=== PATIENT | female | born 1945 | race Hispanic/Latino ===

== ENCOUNTER 2016-06-01 15:10 | Outpatient (CLI) | payer MEDICARE ==
--- NOTE | 2016-06-01 16:11 | Mammography Report ---
RIGHT DIGITAL SCREENING MAMMOGRAM : 06/01/16 15:10:00 CLINICAL: Routine screening. Breast cancer survivor status post left mastectomy. COMPARISON:05/03/15 FINDINGS: The breast is heterogeneously dense, which may obscure small masses.No mass, suspicious architectural distortion or suspicious calcifications. IMPRESSION: No mammographic evidence of malignancy. BI-RADS CATEGORY: 1 - - Negative RECOMMENDATION: Routine screening in one year. ACR BI-RADS MAMMOGRAPHIC CODES: 0 = Needs additional imaging evaluation; 1 = Negative; 2 = Benign; 3 = Probably benign; 4 = Suspicious; 5 = Malignant; 6 = Known biopsy-proven malignancy COMMENT: 1. Dense breast tissue, i.e., adenosis, fibrocystic changes, etc., may obscure an underlying neoplasm. 2. Approximately 10% of cancers are not detected with mammography. 3. A negative mammography report should not delay biopsy if a clinically suspicious mass is present. COMMENT: Patient follow-up letters are generated via our [employer] application.
== END 2016-06-01 15:11 | disposition home or self-care (01) ==
LOC: SPVWC 15:10
PROVIDERS: ATTEND Internal Medicine
DX: Z12.31 Encounter for screening mammogram for malignant neoplasm of breast (principal); Z90.12 Acquired absence of left breast and nipple
CPT/HCPCS: G0202-52

== ENCOUNTER 2017-01-22 08:40 | Outpatient (CLI) | payer MEDICARE ==
[2017-01-22 09:58] LABS: Blood Urea Nitrogen 15 mg/dL (7-17)
[2017-01-22] MEDS ORDERED: NACL ONE ×2 (11:19→11:53)
--- NOTE | 2017-01-22 14:43 | Cat Scan Report ---
CT CHEST, ABDOMEN AND PELVIS WITH CONTRAST INDICATION: Left breast cancer. Bilateral hip pain. COMPARISON: None similar. FINDINGS: Chest, abdomen and pelvis CT performed following oral contrast and intravenous administration of 100 cc of Omnipaque 300. CHEST: Unremarkable heart and great vessels, to the extent assessed. No effusions. Patent central airway. Numerous mediastinal lymph nodes measure up to 1.6 x 0.8 cm as on axial image 73, series 2. Largest vascular space confluent lymphadenopathy is approximately 1.8 x 0.9 cm, image 73. No definite significant hilar, subcarinal or axillary lymphadenopathy seen at this time. Left axillary surgical clips with left mastectomy and reconstruction. Normal thyroid. Slight biapical scarring. Slight bibasilar bronchiectasis possible. Nonspecific distal esophageal wall prominence/thickening, not excluded for gastroesophageal reflux and/or hiatal hernia, amongst others. ABDOMEN: Cholecystectomy clips. Liver, spleen, pancreas, adrenals, aorta, IVC and kidneys within normal limits. Indeterminate 4 mm left lower renal cortical hypodensity posteriorly, image 41, series 4. Slight bilateral perinephric stranding. Few small retroperitoneal lymph nodes measure up to 8 mm left para-aortic, axial image 410, series 2. No ascites or other size significant adenopathy. Opacified GI tract nonobstructive. Cecum low lying in the right hemipelvis with a normal appendix extending cephalad near the iliac vessels. PELVIS: Uterus surgically absent. Small pelvic phleboliths. Rectal stool. Urinary bladder and sigmoid appear within normal limits. No free fluid or significant adenopathy. Bilateral inguinal region fatty prominence incidentally noted. Severe L5-S1 disc narrowing and mild degenerative spurring with possible spinal stenosis. Few other multilevel spinal degenerative changes/spurring also noted. Slight lumbar levocurvature apex about L2. CONCLUSION: 1. Few intrathoracic mediastinal/AP window/vascular space lymph nodes noted somewhat prominent, nonspecific though difficult to entirely exclude metastatic on this exam alone. 2. Few small nonspecific, subcentimeter retroperitoneal lymph nodes also seen. 3. Various other findings, including left mastectomy and reconstruction, distal esophageal prominence/thickening, cholecystectomy, hysterectomy and advanced L5-S1 degenerative changes, amongst others, as above. Direct comparison with similar prior imaging would be helpful, if available. Thank you for the opportunity to participate in this patient's care.
--- NOTE | 2017-01-22 15:16 | Nuclear Medicine Report ---
BONE SCAN: History: Malignant neoplasm breast. After injection of isotope, gamma camera imaging of the bony system was done. There is normal soft tissue and renal uptake. Mild degenerative uptake is noted at the sternoclavicular joints, wrists, knees and feet. There is subtle increased uptake in the greater trochanters of both proximal femurs, right greater than left. No obvious bony lesion is demonstrated in this area on CT performed the same day. I suspect this is degenerative degenerative in nature. There is focal uptake in knee right hand soft tissues which is likely related to radiotracer injection. IMPRESSION: No convincing evidence for metastatic disease to the bones. Degenerative uptake as outlined above.
== END 2017-01-22 08:41 | disposition home or self-care (01) ==
LOC: NM 08:40
PROVIDERS: ATTEND Internal Medicine Hematology & Oncology
DX: M25.551 Pain in right hip (principal); M25.552 Pain in left hip; M89.9 Disorder of bone, unspecified; R59.1 Generalized enlarged lymph nodes; I87.8 Other specified disorders of veins; M47.897 Other spondylosis, lumbosacral region; M43.8X6 Other specified deforming dorsopathies, lumbar region; Z85.3 Personal history of malignant neoplasm of breast; Z90.12 Acquired absence of left breast and nipple; Z90.49 Acquired absence of other specified parts of digestive tract; Z90.710 Acquired absence of both cervix and uterus
CPT/HCPCS: 36415; 71260; 74177; 78306; 82565; 84520; A9503; Q9967

== ENCOUNTER 2017-06-11 08:47 | Outpatient (CLI) | payer MEDICARE ==
--- NOTE | 2017-06-11 15:34 | Mammography Report ---
RIGHT DIGITAL SCREENING MAMMOGRAM : 06/11/17 08:47:00 CLINICAL: Routine screening. Breast cancer survivor status post left mastectomy and chemotherapy. COMPARISON:06/01/16 FINDINGS: The breast is heterogeneously dense with a stable fibroglandular pattern.No mass, suspicious architectural distortion or suspicious calcifications. IMPRESSION: No mammographic evidence of malignancy. BI-RADS CATEGORY: 1 - - Negative RECOMMENDATION: Routine screening in one year. ACR BI-RADS MAMMOGRAPHIC CODES: 0 = Needs additional imaging evaluation; 1 = Negative; 2 = Benign; 3 = Probably benign; 4 = Suspicious; 5 = Malignant; 6 = Known biopsy-proven malignancy COMMENT: 1. Dense breast tissue, i.e., adenosis, fibrocystic changes, etc., may obscure an underlying neoplasm. 2. Approximately 10% of cancers are not detected with mammography. 3. A negative mammography report should not delay biopsy if a clinically suspicious mass is present. COMMENT: Patient follow-up letters are generated via our [employer] ([employer]) application.
== END 2017-06-11 08:48 | disposition home or self-care (01) ==
LOC: SPVWC 08:47
PROVIDERS: ATTEND Internal Medicine
DX: Z12.31 Encounter for screening mammogram for malignant neoplasm of breast (principal); Z90.12 Acquired absence of left breast and nipple

== ENCOUNTER 2018-06-17 08:46 | Outpatient (CLI) | payer MEDICARE ==
--- NOTE | 2018-06-17 13:06 | Mammography Report ---
RIGHT DIGITAL SCREENING MAMMOGRAM with CAD: 06/17/18 08:46:00 CLINICAL: Routine screening. Breast cancer survivor status post left mastectomy and chemotherapy. COMPARISON:06/11/17 FINDINGS: The breast is heterogeneously dense, which may obscure small masses.No mass, architectural distortion or suspicious calcifications. IMPRESSION: No mammographic evidence of malignancy. BI-RADS CATEGORY: 1 - - Negative RECOMMENDATION: Routine screening in one year. ACR BI-RADS MAMMOGRAPHIC CODES: 0 = Needs additional imaging evaluation; 1 = Negative; 2 = Benign; 3 = Probably benign; 4 = Suspicious; 5 = Malignant; 6 = Known biopsy-proven malignancy COMMENT: 1. Dense breast tissue, i.e., adenosis, fibrocystic changes, etc., may obscure an underlying neoplasm. 2. Approximately 10% of cancers are not detected with mammography. 3. A negative mammography report should not delay biopsy if a clinically suspicious mass is present. COMMENT: Patient follow-up letters are generated via our [employer] application.
== END 2018-06-17 08:47 | disposition home or self-care (01) ==
LOC: SPVWC 08:46
PROVIDERS: ATTEND Internal Medicine
DX: Z12.31 Encounter for screening mammogram for malignant neoplasm of breast (principal)

== ENCOUNTER 2019-05-07 08:33 | Outpatient (CLI) | payer MEDICARE ==
--- NOTE | 2019-05-07 15:49 | Ultrasound Report ---
RIGHT BREAST ULTRASOUND HISTORY: A lower outer enhancing nodule by MRI. COMPARISON: Report only from [place] 02/26/2019 MRI.. FINDINGS: Sonographic evaluation focused upon the lower outer location of the right breast demonstrat es an oval smooth hypoechoic nodule or lymph node at 8:00 3 cm from the nipple measuring 3 x 2 x 1 mm . This probably correlates with the MRI finding. A benign cyst at 9:00 4 cm from the nipple measures 3 x 3 x 2 mm. IMPRESSION: A probably benign 3 mm mass or lymph node at 8:00 3 cm from the nipple. Recommend 6 month follow-up t argeted right breast ultrasound and MRI. BIRADS 3: Probably benign. Signer Name: Reinaldo Harrison MD Signed: 05/07/2019 3:45 PM Workstation Name: [id number]
== END 2019-05-07 08:34 | disposition home or self-care (01) ==
LOC: SPVWC 08:33
PROVIDERS: ATTEND Internal Medicine Hematology & Oncology
DX: Z85.3 Personal history of malignant neoplasm of breast (principal)

== ENCOUNTER 2019-11-04 08:02 | Outpatient (CLI) | payer MEDICARE | END 2019-11-04 08:03 | disposition home or self-care (01) | LOC: SPVWC 08:02 | PROVIDERS: ATTEND Internal Medicine Hematology & Oncology | DX: Z08 Encounter for follow-up examination after completed treatment for malignant neoplasm (principal); Z85.3 Personal history of malignant neoplasm of breast ==

== ENCOUNTER 2020-04-20 15:04 | Outpatient (CLI) | payer MEDICARE ==
--- NOTE | 2020-04-20 16:10 | Ultrasound Report ---
ULTRASOUND BREAST RIGHT LIMITED, 04/20/2020 CLINICAL INFORMATION / INDICATION: Follow-up lesion. TECHNIQUE: Targeted ultrasound evaluation was performed of the area of interest. COMPARISON: Right breast ultrasound 11/04/2019 FINDINGS: In the 8:00 position, 4 cm from nipple, the small benign-appearing mixed echogenicity lesion is again seen measuring just under 4 mm which is not significantly changed in size. This is felt to either re present a small lymph node or a cyst cluster. No shadowing or vascularity are seen. Additional incide ntal note is made of a 3 mm benign simple cyst at 9:00. IMPRESSION: Stable appearance of probably benign abnormality. Follow up recommendation: Additional 6 month follow-up ultrasound BI-RADS Category 3: Probably Benign. Followup in 6 months. A normal or "negative" report should not preclude biopsy or follow-up of a clinically suspicious find ing. Signer Name: Tenzin Pierce MD Signed: 04/20/2020 4:06 PM Workstation Name: [id number]
--- NOTE | 2020-04-21 12:48 | Mammography Report ---
DIGITAL DIAGNOSTIC MAMMOGRAM WITH CAD, 04/21/2020 CLINICAL INFORMATION / INDICATION: Personal history of breast cancer with left mastectomy, routine fo llow-up. TECHNIQUE: Digital right 2D mammography was obtained in the craniocaudal and mediolateral oblique pr ojections. This examination was interpreted with the benefit of Computer-Aided Detection analysis. COMPARISON: 06/17/2018 and prior FINDINGS: Breast Density: The breasts are heterogeneously dense, which may obscure small masses. No dominant mass, suspicious calcifications, or architectural distortion in the right breast. IMPRESSION: No mammographic evidence of malignancy. Follow up recommendation: Routine yearly BI-RADS Category 1: Negative. A "normal" or negative report should not discourage follow up or biopsy of a clinically significant f inding. A written summary of these findings will be mailed to the patient. The patient will be entered into a mammography reporting system which will generate a reminder letter for the patient's next appointmen t at the appropriate interval. The [employer] recommends yearly mammograms starting at age 40 and continuing as l sweetie as a woman is in good health. Breast MRI is recommended for women with an approximate 20-25% or greater lifetime risk of breast cancer, including women with a strong family history of breast or ova thomas cancer or who have been treated for Hodgkin's disease. Signer Name: Tenzin Pierce MD Signed: 04/21/2020 12:44 PM Workstation Name: [id number]
== END 2020-04-20 15:05 | disposition home or self-care (01) ==
LOC: SPVWC 15:04
PROVIDERS: ATTEND Internal Medicine Hematology & Oncology
DX: R92.8 Other abnormal and inconclusive findings on diagnostic imaging of breast (principal); Z85.3 Personal history of malignant neoplasm of breast

== ENCOUNTER 2020-09-29 08:58 | Outpatient (CLI) | payer MEDICARE ==
--- NOTE | 2020-09-29 10:08 | Ultrasound Report ---
ULTRASOUND BREAST RIGHT LIMITED, 09/29/2020 CLINICAL INFORMATION / INDICATION: RT BREAST SMALL LYMPH NODE OR CYST-this is a 6 month follow-up oly deal. History of left mastectomy for carcinoma TECHNIQUE: Targeted ultrasound evaluation was performed of the area of interest. COMPARISON: Prior right breast ultrasounds 11/04/2019 and 04/20/2020, right mammogram 04/20/2020 FINDINGS: There are scattered benign-appearing hypoechoic nodules within the right lateral breast not appreciab ly changed from prior exams. All visible nodules are 4 mm or less. No suspicious mass or nodule is id entified. IMPRESSION: No sonographic evidence of malignancy. Stable appearance of benign-appearing nodularity i n the lateral right breast. Follow up recommendation: Resumption of annual screening mammography. Patient will be due for right s creening mammogram in March 2021 BI-RADS Category 2: Benign. A normal or "negative" report should not preclude biopsy or follow-up of a clinically suspicious find ing. Signer Name: Beena Thomas MD Signed: 09/29/2020 10:04 AM Workstation Name: [email or web address]
== END 2020-09-29 08:59 | disposition home or self-care (01) ==
LOC: SPVWC 08:58
PROVIDERS: ATTEND Internal Medicine Hematology & Oncology
DX: N63.10 Unspecified lump in the right breast, unspecified quadrant (principal); Z85.3 Personal history of malignant neoplasm of breast

== ENCOUNTER 2021-08-17 11:14 | Outpatient (CLI) | payer MEDICARE ==
--- NOTE | 2021-08-18 16:02 | Mammography Report ---
DIGITAL SCREENING MAMMOGRAM WITH CAD, 08/17/2021 CLINICAL INFORMATION / INDICATION: Routine screening mammography. SCREENING MAMMO UNILATER RIGHT WITH LEFT IMPLANT Z12.31 TECHNIQUE: Digital right 2D mammography was obtained in the craniocaudal and mediolateral oblique pr ojections. This examination was interpreted with the benefit of Computer-Aided Detection analysis. COMPARISON: 04/20/2020, 06/01/2016 FINDINGS: Breast Density: The breast is heterogeneously dense, which may obscure small masses. No dominant mass, suspicious calcifications, or architectural distortion in the right breast. Postred uction changes are noted. IMPRESSION: No mammographic evidence of malignancy. Follow up recommendation: Routine yearly BI-RADS Category 2: BENIGN. A "normal" or negative report should not discourage follow up or biopsy of a clinically significant f inding. A written summary of these findings will be mailed to the patient. The patient will be entered into a mammography reporting system which will generate a reminder letter for the patient's next appointmen t at the appropriate interval. The [employer] recommends yearly mammograms starting at age 40 and continuing as l sweetie as a woman is in good health. Breast MRI is recommended for women with an approximate 20-25% or greater lifetime risk of breast cancer, including women with a strong family history of breast or ova thomas cancer or who have been treated for Hodgkin's disease. Signer Name: Eloy Edmondson MD Signed: 08/18/2021 3:57 PM Workstation Name: [id number]
== END 2021-08-17 11:15 | disposition home or self-care (01) ==
LOC: SPVWC 11:14
PROVIDERS: ATTEND Internal Medicine Hematology & Oncology
DX: Z12.31 Encounter for screening mammogram for malignant neoplasm of breast (principal); N64.89 Other specified disorders of breast